=== PATIENT | female | born 1980 | race Caucasian/White ===

== ENCOUNTER → 2019-01-17 | Day surgery (SDC) | payer BC ==
--- OUTSIDE RECORDS SUMMARY | 2019-01-17 09:00 | XMS REPORT ---
:1980 [facility] Address [address] [place] [address] Dr. Perez [address] [place] [id number] Care Team Providers Name Role Phone Unavailable Unavailable Unavailable Problems This patient has no known problems. Allergies, Adverse Reactions, Alerts This patient has no known allergies or adverse reactions. Medications This patient has no known medications.
--- NOTE | 2019-01-17 11:17 | RAD REPORT ---
EXAM DESCRIPTION: US - Breast Core BX w/US Guidance - 01/17/2019 10:28 am CLINICAL HISTORY: ICD N 63.21 COMPARISON: None TECHNIQUE: The risks, benefits and alternatives to the procedure were explained to the patient and i nformed consent obtained. The skin and subcutaneous tissues were anesthetized with Lidocaine. Under sonographic guidance, two 14 gauge vacuum assisted core biopsies were obtained into the mass wi thin the upper-outer quadrant of the left breast. 2 centimeter core specimens obtained. The specimens were given to pathology. Subsequently a localizing clip was placed into the mass. Patient experienced no immediate complication IMPRESSION: Vacuum assisted core biopsies of the mass within the upper outer quadrant of the left br [place]
== END ==
LOC: DS 08:52
PROVIDERS: ATTEND Surgery
DX: N63.21 Unspecified lump in the left breast, upper outer quadrant (principal)
CPT/HCPCS: 19083; 88305

== ENCOUNTER 2022-06-15 21:57 | Emergency (ER) | payer BC ==
--- OUTSIDE RECORDS SUMMARY | 2022-06-15 22:01 | XMS REPORT | Continuity of Care Document ---
:1980 Author Organization [facility] t Address [address] [place] [address] Care Team Providers Name Role Phone Thomas Bell Attending Clinician Unavailable Santos Paul Attending Clinician Unavailable Gustavo Felix MD Attending Clinician GUSTAVO FELIX Attending Clinician Unavailable Physician, No Primary Care Admitting Clinician Unavailable Payers Payer Name Policy Type Policy Number Effective Date Expiration Date S ource Problems Condition Condition Condition Status Onset Resolution Last Treating Co mments Source Name Details Category Date Date Treatment Clinician Date Breast Breast Disease Active Overview: Breonna rivera cancer cancer -01/17/19 - ity of 00:00: left [place] 00 breast Medical biopsy01/17 Branch - MRI left breast01/18 02/04 - double mastectom y MD Chilel Malignant Malignant Disease Active Uni vers neoplasm neoplasm 5-28 ity of of of 00:00: [place] upper-oute upper-oute 00 Me dical r quadrant r quadrant Br anch of left of left breast in breast in female, female, estrogen estrogen receptor receptor positive positive Menorrhagi Menorrhagi Disease Active U nivers a with a with 5-28 ity of regular regular 00:00: [place] cycle cycle 00 Medical Branch Allergies, Adverse Reactions, Alerts Allergy Allergy Status Severity Reaction(s) Onset Inactive Treating Comm ents Source Name Type Date Date Clinician No Known DA Active U [facility] [place] No Known DA Active U [facility] Allergie 4-22 [facility] 00:00: [facility]osp[facility] 00 l [facility] NO KNOWN Drug Active Univers ALLERGIE Class ity of S [facility] [place] [facility] Social History Social Habit Start Date Stop Date Quantity Comments Source Sex Assigned At Universit y of [facility] [place] [facility] Tobacco use and 2019-03-15 2019-03-15 Never used Universit y of exposure 00:00:00 00:00:00 [facility] [place] [facility] Alcohol intake 2019-03-15 2019-03-15 Current drinker Unive rsity of 00:00:00 00:00:00 of alcohol [facility] [place] Alcohol Comment 2016-11-26 2016-11-26 Socially Universit y of 00:00:00 00:00:00 [facility] [place] [facility] History of 1999-11-26 Smoker University of tobacco use 00:00:00 [facility] [place] [facility] Smoking Status Start Date Stop Date Source Former smoker 2019-03-15 00:00:00 2019-03-15 00:00:00 Universi [facility] Medications Ordered Filled Start Stop Current Ordering Indication Dosage Frequency Signature Comments Components Source Medication Medication Date Date Medication? Clinician (SIG) Name Name tramadol Yes Take by Univer s HCl 5-28 mouth. ity of (TRAMADOL 21:51: [place] ORAL) [address] [place] [address] tramadol Yes Take by Univer s HCl 5-28 mouth. ity of (TRAMADOL 21:51: [place] ORAL) [address] [place] [address] gabapentin Yes TAKE ONE Uni vers 300 mg 5-10 (1) ity of capsule 00:00[place] BY MOUTH Medical THREE Branch TIMES A DAY NEEDED . TAKE ONE (1) CAPSULE BY MOUTH THE MORNING OF SURGERY. gabapentin Yes TAKE ONE Uni vers 300 mg 5-10 (1) ity of capsule 00:00: [place] BY M[place]TH Medical THREE Branch TIMES A DAY NEEDED . TAKE ONE (1) CAPSULE BY MOUTH THE MORNING OF SURGERY. Procedures This patient has no known procedures. Encounters Start End Encounter Admission Attending Care Care Encounter Source Date/Time Date/Time Type Type Clinicians Facility Department ID 2021-11-13 Outpatient NAGA Bell [facility] [id number] Common 12:47:34 Thomas [address] [facility] 2019-10-24 Inpatient GEORGES Paul, [facility] DA[facility] [id number] [facility] 08:[facility]:00 [facility] [place] 2019-10-21 Inpatient GEORGES Paul [facility] DAYS [id number] [facility] 08:[facility]:00 [facility] [place] 2020-06-29 2020-06-29 Telephone Gustavo Felix [facility] [id number] 00:00:00 00:00:00 [place] 350.1.13.10 [place] 4.2.7.2.686 Professio [phone] [address] 2020-06-29 2020-06-29 Telephone Gustavo Felix [facility] [id number] [facility] 00:00:00 00:00:00 [place] 350.1.13.10 i ty of [place] 4[place].2.[place] [phone] [place] [address] 2020-02-06 2020-02-06 Outpatient R GUSTAVO FELIX [facility] [id number] Univers 09:00:00 09:00:00 ity of [facility] [place] [facility] 2020-01-25 2020-01-25 Telephone Gustavo Felix [facility] [id number] 00:00:00 00:00:00 [place] 350.1.13.10 [place] 4.2.7.2.686 Professio [phone] [address] 2020-01-25 2020-01-25 Telephone Gustavo Felix [facility] [id number] [facility] 00:00:00 00:00:00 [place] 350.1.13.10 i ty of [place] 4[place].2.686 [place] Profess[place] [phone] [place] [address] Results Test Description Test Time Test Comments Results Result Comments Source BREAST,REDUCTION 2019-10-26 13:19:00 --------RUN DATE: 10/26/19 [facility] PAGE 1 RUN TIME: 1922 Specimen Inquiry RUN USER: INTERFACE --------PATIENT: BENOIT HARMON LOC: [facility] U #: [id number] AGE/SX: 39/F ROOM: RE10/24/19REG DR: Santos Paul MD : 81 BED: DIS: STATUS: JORGE VILA TLOC: -------- SPEC #: [id number] RECD: 10/24/19 STATUS: RAMIRO RETiffany #: [id number] WILLIAM: 10/24/19- SUBM DR: Santos Paul MD ENTERED: 10/25/19 SP TYPE: BENITA JONES DR: ORDERED: GROSS ONLY/2, LEVEL IV CODES: L92909 - BREAST, NOS PROCEDURES: GROSS ONLY (Incomplete) LEVEL IV (Incomplete) TISSUES: BREAST, NOS - RIGHT AND LEFT BREAST EXPANDERS AND RIGHT BREAST CAPSULE CLINICAL HISTORY 39 year old, history of breast cancer (wpd) FINAL DIAGNOSIS Right tissue water team leader, removal: - breast implant (gross identification only) Left tissue water team leader, removal: - breast implant (gross identification only) Right side breast capsule, excision: - fibrous pseudocapsule with focal calcification CPT code(s): 55409 x2, 48131 zo/matt dt: 10/26/19 GROSS DESCRIPTION ANATOMIC SOURCE OF TISSUE (per Requisition): 1. RIGHT tissue water team leader for ID only 2. LEFT tissue water team leader for ID Only 3. RIGHT side breast capsule Each specimen is labeled with the patient's name and medical record number. Specimen #1 is designated "RIGHT tissue water team leader" and consists of an 80 gm, 14.0 x 14.0 x 3.0 cm collapsed, rough surfaced breast explant. There is a 1.0 cm defect. There is an identifiable inscription that reads "[employer] 133FX 12CM-450CC Lot [id number]". No sections are submitted. Gross diagnosis only. Specimen #2 is designated "LEFT tissue water team leader" and consists of an 85 gm, 14.5 x 13.0 x 3.0 cm rough surfaced, collapsed breast explant. There is a 1.5 cm defect. CONTINUED ON NEXT PAGE --------RUN DATE: 10/26/19 [facility] PAGE 2 RUN TIME: 1922 Specimen Inquiry RUN USER: INTERFACE --------SPEC #: [id number] PATIENT: BENOIT HARMON #[id number] (Continued) GROSS DESCRIPTION (Continued) There is an identifiable inscription that reads "[employer] 133FX 12CM-450CC Lot [id number]". No sections are submitted. Gross diagnosis only. Specimen #3 is designated "RIGHT side breast capsule" and consists of a 6.5 x 2.5 x 0.2 cm capsular tissue. The cut surfaces are reno and firm. There are no areas of calcification. Ceramic Maker Demonstrator sections submitted as A1. sugey/melody 10/25/19 MICROSCOPIC DESCRIPTION Specimen #1 is a breast implant for gross identification only. Specimen #2 is a breast implant which is for gross identification only. Specimen #3 consists of a fibrous pseudocapsule with focal calcification. No tumor is identified. hilary dt: 10/26/19 Signed Miriam Aquino 10/26/19 1319 -------- END OF REPORT MOSHE NAYAK 2019-10-24 12:31:00 Test Item Value Reference Range Interpretation Comme nts UR HCG QUAL (test code = HCGQLU) NEGATIVE 1. Very dilute urine specimens, as indicated by a lowspecific gravity, may not contain rep resentative levels ofhCG. 2. False negative results may occur when the levels of hCGare below the sensitivity level of the test. If is st ill suspected, a first morningurine sp ecimen should be collected 48 ho urs later andtested. CBC W/AUTO [id number] 13:22:00 Test Item Value Reference Range Interpretation Comments WHITE BLOOD CELL (test code = WBC) 8.9 K/mm3 6.6-12.1 N RED BLOOD CELL (test code = RBC) 3.89 M/mm3 3.45-5.01 N HEMOGLOBIN (test code = HGB) 11.8 g/dL 10.7-13.9 N HEMATOCRIT (test code = HCT) 35.4 % 32.1-42.1 N MEAN CELL VOLUME (test code = MCV) 91 fL 84.1-94.8 N MEAN CELL HGB (test code = MCH) 30.3 pg 27-35 N MEAN CELL HGB CONCETRATION (test 33.3 gm/dL 32.2-34.1 N code = MCHC) RED CELL DISTRIBUTION WIDTH (test 13.4 % 12.4-16.5 N code = RDW) PLATELET COUNT (test code = PLT) 261 K/mm3 133-385 N IMMATURE PLATELET FRACTION (test 0.0 % 0.0-10.8 N code = IPF) MEAN PLATELET VOLUME (test code = 10.0 fl 9.1-12.7 N MPV) NEUTROPHIL % (test code = NT%) 66.3 % 56.5-79.4 N LYMPHOCYTE % (test code = LY%) 19.7 % 14.3-34.3 N MONOCYTE % (test code = MO%) 7.9 % 5.1-10.4 N EOSINOPHIL % (test code = EO%) 5.1 % 0.1-3.0 H BASOPHIL % (test code = BA%) 0.7 % 0.1-1.0 N NEUTROPHIL # (test code = NT#) 5.9 K/mm3 LYMPHOCYTE # (test code = LY#) 1.7 K/mm3 MONOCYTE # (test code = MO#) 0.7 K/mm3 EOSINOPHIL # (test code = EO#) 0.45 K/mm3 BASOPHIL # (test code = BA#) 0.1 K/mm3 RBC MORPHOLOGY REQUIRED (test code NORMAL NORMAL = RBCM) PLATELET MORPHOLOGY REQUIRED (test NORMAL NORMAL code = PLTMR) UR HCG [id number] 12:45:00 Test Item Value Reference Range Interpretation Comments UR HCG QUAL (test NEGATIVE 1. Very d ilute urine code = HCGQLU) specimens, as indicated by a lowspecific g ravity, may not contain rep resentative levels ofhCG. 2 . False negative result s may occur when the levels of hCGare below the sensi tivity level of the test. If is still suspec twin, a first morningurine sp ecimen should be colle cted 48 hours later and tested. HGB [id number] 13:33:00 Test Item Value Reference Range Interpretation Comments HEMOGLOBIN (test code = HGB) 12.9 g/dL 10.7-13.9 N HEMATOCRIT (test code = HCT) 40.2 % 32.1-42.1 N UR HCG [id number] 13:26:00 Test Item Value Reference Range Interpretation Comments UR HCG QUAL (test NEGATIVE 1. Very di lute urine code = HCGQLU) specimens, as indicated by a lowspecific g ravity, may not contain rep resentative levels ofhCG. 2 . False negative result s may occur when the levels of hCGare below the sensi tivity level of the test. If is still suspec twin, a first morningurine sp ecimen should be colle cted 48 hours later and tested. BREAST,EXCISION OF LESION/[id number] 14:39:00 RUN DATE: 03/01/19 [facility] PAGE 1 RUN TIME: 1104 Specimen Inquiry RUN USER: INTERFACE --PATIENT: BENOIT HARMON [facility] [id number] AGE/SX: 38/F ROOM: [facility] RE02/09/19REG DR: Santos Paul MD : 81 BED: A DIS: 02/10/19 STATUS: DIS Sergio TLOC: SPEC #: [id number] RECD: 02/09/19 STATUS: RAMIRO CESAR #: [id number] WILLIAM: 02/09/19- SUBM DR: Noam Campbell MD ENTERED: 02/09/19-143 SP TYPE: BREAST,EXC OTHR DR: ORDERED: LEVEL SURGIC, FROZEN SECTION, FROZEN ADD, IHC E CADHERIN, CYT OKERATIN AB/2 CODES: P02016 - SKIN, NOS Z54535 - BREAST, NOS KX4589 - LYMPH NODE, NOS PROCEDURES: LEVEL SURGIC (Incomplete) FROZEN SECTION (Incomplete) FROZEN ADD (Incomplete) IHC E CADHERIN (Incomplete) CYTOKERATIN AB (Incomplete) TISSUES: BREAST, NOS - RIGHT AND LEFT BREAST TISSUE X 3 LYMPH NODE,NOS - LYMPH NODES X 2 SKIN, NOS - LEFT BREAST SKIN CLINICAL HISTORY 38 year old, LEFT breast cancer (wpd) FINAL DIAGNOSIS Breast, LEFT mastectomy: - invasive pleomorphic lobular carcinoma, Juan M grade 3 - size invasive carcinoma: 1.6 cm - positive for lymphvascular space invasion - 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, pleomorphic type - margins negative for invasive carcinoma - distance from closest margin: greater than 1.5 cm from reexcised anterior / superior margin - prognostic markers - see above LEFT breast reexcised upper outer anterior margin: - negative for carcinoma LEFT sentinel lymph node, excision: - 1 of 1 lymph nodes negative for metastatic carcinoma (pancytokeratin immunostain neg ative) LEFT breast skin, excision: - negative for carcinoma CONTINUED ON NEXT PAGE -RUN DATE: 03/01/19 [facility] PAGE 2 RUN TIME: 1104 Specimen Inquiry RUN USER: INTERFACE SPEC #: [id number] PATIENT: BENOIT HARMON #[id number] (Continued) FINAL DIAGNOSIS (Continued) RIGHT breast, prophylactic total mastectomy: - negative for carcinoma - fibrocystic changes RIGHT axillary lymph node (blue node), excision: - benign lymph node (1) COMMENT: The Technical components were performed at [facility] [place], [address], [address], [place] [address]. The interpretation is provided by [facility], [address] [place] [id number]. Controls received from [facility] stained appropriately. Permanent sections correlate with frozen section diagnosis. Tissue code 1 CPT code(s): 45645 x2, 64913 x3, 79309 x4, 00972-71, 11122-29 x3 cds/wpd 02/21/19 GROSS DESCRIPTION ANATOMIC SOURCEOF TISSUE (per Requisition): 1. RIGHT blue node 2. RIGHT prophylactic total mastectomy 3. LEFT totalmastectomy, suture through axilla (frozen) 4. LEFT sentinel node A (frozen) 5. LEFT breast new upperouter anterior margin 6. New LEFT breast skin Each specimen is labeled with the patient's name and medical record number. Specimen #1 is designated "RIGHT blue node" and consists of a 2 x 1.7 x 1.0 cm yellow fatty tissue. It contains a lymph node measuring 0.7 cm. The lymph node contains blue dye. Thelymph node is sectioned and submitted in toto in A1. Specimen #2 is designated "RIGHT prophylactic total mastectomy" and consists of a 1727 gm simple mastectomy specimen measuring 26 x 25 x 12 cm. The anterior surface contains inverted, T-shaped, unremarkable light reno skin measuring 24 x 20 cm and contains a superiorly located unretracted nipple and areolar complex measuring 1.2 and 4.0 cm. The nipple and areolar is sectioned and submitted in B1. Serial sectioning of the specimen reveals off- white and yellow fibrofatty breast tissue with a fibrous tissue to adipose tissue ratio of approximately 2:3. The parenchyma contains blue-domed cysts measuring up to 0.4 cm. No other lesion is noted. Ceramic Maker Demonstrator sections are submitted in B2 - central breast with the cysts, B3 - outer upper quadrant, B4 - outer lower quadrant, B5 - inner upper quadrant, B6 - inner lower quadrant. Specimen #3 received without fixative and designated "LEFT total mastectomy, suture CONTINUED ON NEXT PAGE R UN DATE: 03/01/19 [facility] PAGE 3 RUN TIME: 1104 Specimen Inquiry RUN USER: INTERFACE SPEC #: [id number] PATIENT: BENOIT HARMON #[id number] (Continued) GROSS DESCRIPTION (Continued) through axilla". The specimen consists ofa 26 x 26 x 11 cm, 1517 gm, modified radical mastectomy specimen. The anterior surface contains inverted, T-shaped, unremarkable light reno skin measuring 22 x 14 cm and contains a superiorly located unretracted nipple and areolar complex measuring 1.1 and 4.0 cm. The nipple and areola is sectioned andsubmitted in toto in C1. Ink code: Blue - anterior superior superficial surface Red - anterior inferior superficial surface Black - entire deep surface Serial sectioning of the specimen reveals off-white and yellow fibrofatty breast tissue with a fibrous tissue to adipose tissue ratio of approximately2:3. It contains a 2.3 x 1.8 x 1.5 cm danielle-reno, firm lesion located in the outer upper quadrant, 7 cm from the lateral edge, 8 cm from the superior edge, 12 cm from nipple, 0.2 cm from the closest anterior superior superficial margin. One section of the lesion with the closest anterior superficial margin is submitted in FSC1. The tissue superior to the lesion appears hemorrhagic and measures up to 1.7 cm. The entire remaining lesion with surrounding tissue and hemorrhagic tissue are submitted from medial to lateral in C2 through C5 - the lesion with the surrounding tissue and closest anterior margin, C6 - the closest deep inked margin, C7 through C10 - hemorrhagic tissue immediately superior to the lesion. Examination of the remaining tissue reveals no other lesions. Additional sections are submitted as follows: C11 - inner upper quadrant, C12 - inner lower quadrant, C13 - outer upper quadrant superior to the lesion, C14 - outer inferior quadrant. Examination of the stitch area of the specimen reveals no lymph nodes. Ceramic Maker Demonstrator sections from this area are submitted in C15 and C16. Specimen#4 received without fixative and designated "LEFT sentinel node A". The specimen consists of a 3 x 3x 1 cm yellow fatty tissue. It contains a 1.2 x 0.7 x 0.5 cm reno-yellow lymph node. The lymph node is sectioned and submitted in toto in FSD1. hz/wpd 02/09/19 @ 4421 Specimen #5 is designated "LEFT breast new upper outer anterior margin" and consists of a 9 gm, 6.5 x 3.5 x 1.5 cm portion breast tissue. There is an identifiable suture, which is designated by the surgeon as "stitch through old margin". The breast parenchyma is fibrofatty and firm. There is no definite residual tumor. The specimen is inked as follows: Surface with stitch - blue, opposite surface - black. The specimen is submitted in its entirety in sequential order as E1 through E8. Specimen #6 is designated "new LEFT breast skin" and consists of a 9 gm, 4.0 x 3.0 x 1.0 cm portion of breast tissue with an overlying 3.8 x 1.4 cm ellipse of skin. The epidermis is reno and slightly granular. The subcutaneous tissue is fibrofatty and CONTINUED ON NEXT PAGE RUN DATE: 03/01/19 [facility] PAGE 4 RUN TIME: 1104 Specimen Inquiry RUNUSER: INTERFACE SPEC #: [id number] PATIENT: BENOIT HARMON #[id number] (Continued) GROSS DESCRIPTION (Continued) unremarkable. There is no definite residual tumor. Also received in the same container is a 4.0 x 1.5 cm reno, slightly granular, unremarkable ellipse of skin. The tissues are inked as follows: Breast tissue - blue, skin - black. Ceramic Maker Demonstrator sections are submitted labeled F1 through F3. sugey/matt 02/10/19 @8970 MICROSCOPIC DESCRIPTION The LEFT breast contains a moderately to poorly-differentiated invasivepleomorphic lobular carcinoma (E- Cadherin negative, p120 positive cytoplasmic staining consistent with lobular carcinoma). The tumor has the following attributes: Specimen Laterality: - LEFT Procedure:- Total mastectomy Tumor Site: - Upper outer quadrant Tumor Size: - 1.6 cm Histologic Type: - Invasive carcinoma with ductal and lobular features Histologic Grade: - Juan M grade 3, score 8 (tubules 3, nuclei 3, mitotic rate 2) Ductal carcinoma in-situ (DCIS): - Not identified Lobular carcinoma in- situ (LCIS); - Consistent with pleomorphic lobular carcinoma in-situ Margins: - Negative for invasive carcinoma Distance from closest margin: - Greater than 1.5 cm from reexcised anterior / superior margin Lymph nodes: - Number of sentinel lymph nodes: 1 - Number of total lymph nodes: 1 - Number of lymph nodes with macrometastases: 0 - Number of lymph nodes with micrometastases: pancytokeratin immunostain CONTINUED ON NEXT PAGE RUN DATE: 03/01/19 [facility] PAGE 5 RUN TIME: 1104 Specimen Inquiry RUN USER: INTERFACE SPEC #: [id number] PATIENT: BENOIT HARMON #[id number] (Continued) MICROSCOPIC DESCRIPTION (Continued) negative on block FSD1 Lymphvascular space invasion: - Positive (confirmed on D240 immunostain on block C4) Pathologic Stage Classification: - Primary tumor: pT1c - Lymph nodes: pN0 Ancillary studies: - Prognostic markers: See below The following results are received from [facility], [place], [place] on February 14, 2019. BODY SITE: LEFT breast tissue SENTINEL NODES [id number] PROGNOSTIC / PREDICTIVE MARKERS Histology Image Analysis, Global IHC Quantitative Breast Panel INTERPRETATION: Refer to separate report for results of HER2 FISH reflex testing. ER: POSITIVE Tumor Stained: 99% Intensity: 3+ Internal Control: Present, positive Tico Score: 8 PgR: POSITIVE Tumor Stained: 99% Intensity: 3+ Internal Control: Present, positive Tico Score: 8 HER2 Breast: NEGATIVE Score: 1+ Percentage of cells with uniform Intensive Complete Membrane Stainin% KI67: BORDERLINE Tumor Stained: 19% Intensity: 3+ COMMENT: Specimen handlingmet the requirements specified in the latest version of the ASCO/CAP guidelines. CONTINUED ON NEXT PAGE RUN DATE: 03/01/19 [facility] PAGE 6 RUN TIME: 1104 Specimen Inquiry RUN USER: INTERFACE - SPEC #: [id number] PATIENT: BENOIT HARMON #[id number] (Continued) MICROSCOPIC DESCRIPTION (Continued) Following is the FISH Analysis received from [facility], [place], [place] on February 18, 2019. HER-2 BREAST FISH ANALYSIS Specimen site: LEFT BREAST, SENTINELNODES Result POSITIVE INTERPRETATION: Average HER2 signals/nucleus: 5.0 Average DIEGO 17 signals/nucleus: 2.4 HER2/DIEGO 17 signal ratio: 2.1 Number of Observers: 1 Results show HER2 amplification and a HER2/CEN17 ratio of >/=2.0 with average HER2 copy number /=4.0 signals per cell. This is a POSITIVEresult based on the 2018 ASCO/CAP guidelines. Along with fluorescence in situ hybridization (FISH), an H E stained slide was reviewed by a pathologist to identify the target area containing invasive tumor. FISH analysis of 50 interphase nuclei was performed within the marked target area using a dual-probe FISH assay. When FISH results are indeterminate and IHC is equivocal (2+), the FISH slide is recounted including the area(s) of invasive tumor with 2+ staining as identified by a pathologist. At least 20 additional cells are counted by an additional observer, blinded to previous BEBA results. Controls performed appropriately. cds/kr dt: 02/21/19 / cds/wpd 02/21/19 Signed Rusty Cardenas 02/21/19 1439 END OF REPORT BREAST,EXCISION OF LESION/MASS 2019-02-21 14:39:00 RUN DATE: 03/15/19 [facility] PAGE 1 RUN TIME: 1439 Specimen Inquiry RUN USER: INTERFACE --PATIENT: BENOIT HARMON LOC: [facility] U #: [id number] AGE/SX: 38/F ROOM: [facility] RE02/09/19REG DR: Santos Paul MD : 81 BED: A DIS: 02/10/19 STATUS: DIS Sergio TLOC: SPEC #: [id number] RECD: 02/09/19 STATUS: RAMIRO LION #: [id number] WILLIAM: 02/09/19- SUBM DR: Noam Campbell MD ENTERED: 02/09/19 SP TYPE: BREAST,EXC OTHR DR: ORDERED: LEVEL SURGIC, FROZEN SECTION, FROZEN ADD, IHC E CADHERIN, CYTO KERATIN AB/2 ADDENDUM FINDINGS Addendum #1 Entered: 03/15/19 Following is the FISH Analysis received from [facility], [place], [place] on March 12, 2018. HER-2 BREAST FISH ANALYSIS Specimen site: LEFT BREAST ([id number]) Result POSITIVE INTERPRETATION: Average HER2 signals/nucleus: 5.0 Average DIEGO 17 signals/nucleus: 2.4 HER2/DIEGO 17 signal ratio: 2.1 Number of Observers: 1 Results show HER2 amplification and a HER2/CEN17 ratio of >/+2.0 with average HER2 copy number >/+4.0 signals cell. This is a POSITIVE result based on the 2018 ASCO/CAP guidelines. Along with fluorescence in situ hybridization (FISH), an H E stained slide was reviewed by a pathologist to identify the target area containing invasive tumor. FISH analysis of 50 interphase nuclei was performed within the marked target area using a dual-probe FISH assay. When FISH results are indeterminate and IHC is equioval (2+), the FISH slide is recounted including the areas(s) of invasive tumor with 2+ staining as identifiedby a pathologist. At least 20 additional cells are counted by an additional observer, blinded to previous BEBA results. Controls performed appropriately. I acknowledge the above findings. Rashawn Cardenas M.D., Pathologist/ksr CONTINUED ON NEXT PAGE -- RUN DATE: 03/15/19 [facility] PAGE 2 RUN TIME: 1439 Specimen Inquiry RUN USER: INTERFACE -SPEC #: [id number] PATIENT: BENOIT HARMON #[id number] (Continued) ADDENDUM FINDINGS (Continued) March 15, 2019 @ 0702 Addendum Signed Theresa,Rusty Enrique 03/15/19 1439 (prelim) Theresa,Rusty Enrique 03/15/19 1439 CODES: [id number] - SKIN, NOS [id number] - BREAST, NOS [id number] - LYMPH NODE, NOS PROCEDURES: LEVEL SURGIC (Incomplete) FROZEN SECTION (Incomplete) FROZEN ADD (Incomplete)IHC E CADHERIN (Incomplete) CYTOKERATIN AB (Incomplete) TISSUES: BREAST, NOS - RIGHT AND LEFT BREASTTISSUE X 3 LYMPH NODE, NOS - LYMPH NODES X 2 SKIN, NOS - LEFT BREAST SKIN CLINICAL HISTORY 38 year old, LEFT breast cancer (wpd) FINAL DIAGNOSIS Breast, LEFT mastectomy: - invasive pleomorphic lobular carcinoma, [place] grade 3 - size invasive carcinoma: 1.6 cm - positive for lymphvascular space invasion - 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, pleomorphic type - margins negative for invasive carcinoma - distance from closest margin: greater than 1.5 cm from reexcised anterior / superior margin - prognostic markers - see above LEFT breast reexcised upper outer anterior margin: - negative for carcinoma LEFT sentinel lymph node, excision: - 1 of 1 lymph nodes negative for metastatic carcinoma (pancytokeratin immunostain negative) LEFT breast skin, excision: - negative for carcinoma CONTINUED ON NEXT PAGE RUN DATE: 03/15/19 [facility] PAGE 3 RUN TIME: 1439 Specimen Inquiry RUN USER: INTERFACE SPEC #: [id number] PATIENT: BENOIT HARMON #[id number] (Continued) FINAL DIAGNOSIS (Continued) RIGHT breast, prophylactic total mastectomy: - negative for carcinoma - fibrocystic changes RIGHT axillary lymph node (blue node), excision: - benign lymph node (1) COMMENT: The Technical components were performed at [facility], [address] [place] [address], [address], [place] [address]. The interpretation is provided by [facility], [address] [place] [address], [place] [address]. Controls received from [employer] stained appropriately. Permanent sections correlate with frozen section diagnosis. Tissu e code 1 CPT code(s): 07780 x2, 92423 x3, 82067 x4, 01795-83, 67223-90 x3 cds/wpd 02/21/19 GROSS DESCRIPTION ANATOMIC SOURCE OF TISSUE (per Requisition): 1. RIGHT blue node 2. RIGHT prophylactic total mastectomy 3. LEFT total mastectomy, suture through axilla (frozen) 4. LEFT sentinel node A (frozen) 5. LEFT breast new upper outer anterior margin 6. New LEFT breast skin Each specimen is labeled with the patient's name and medical record number. Specimen #1 is designated "RIGHT blue node" and consists of a 2 x 1.7 x 1.0 cm yellow fatty tissue. It contains a lymph node measuring 0.7 cm. The lymph node contains blue dye. The lymph node is sectioned and submitted in toto in A1. Specimen #2 is designated "RIGHT prophylactic total mastectomy" and consists of a 1727 gm simple mastectomy specimen measuring 26 x 25 x 12 cm. The anterior surface contains inverted, T-shaped, unremarkable light reno skin measuring 24 x 20 cm and contains a superiorly located unretracted nipple and areolar complex measuring 1.2 and 4.0 cm. The nipple and areolar is sectioned and submitted in B1. Serial sectioning of the specimen reveals off-white and yellow fibrofatty breast tissue with a fibrous tissue to adipose tissue ratio of approximately 2:3. The parenchyma contains blue-domed cysts measuring up to 0.4 cm. No other l esion is noted. [employer] sections are submitted in B2 - central breast with the cysts, B3 - outer upper quadrant, B4 - outer lower quadrant, B5 - inner upper quadrant, B6 - inner lower quadrant. CONTINUED ON NEXT PAGE RUN DATE: 03/15/19 [facility] PAGE 4 RUN TIME: 1439 Specimen Inquiry RUN USER: INTERFACE SPEC #: [id number] PATIENT: BENOIT HARMON #[id number] (Continued) GROSS DESCRIPTION (Continued) Specimen #3 received without fixative and designated "LEFT total mastectomy, suture through axilla". The specimen consists of a 26 x 26 x 11 cm, 1517 gm, modified radical mastectomy specimen. The anterior surface contains inverted, T-shaped, unremarkable light reno skin measuring 22 x 14 cm and containsa superiorly located unretracted nipple and areolar complex measuring 1.1 and 4.0 cm. The nipple andareola is sectioned and submitted in toto in C1. Ink code: Blue - anterior superior superficial surface Red - anterior inferior superficial surface Black - entire deep surface Serial sectioning of the specimen reveals off-white and yellow fibrofatty breast tissue with a fibrous tissue to adipose tissue ratio of approximately 2:3. It contains a 2.3 x 1.8 x 1.5 cm danielle-reno, firm lesion located in the outer upper quadrant, 7 cm from the lateral edge, 8 cm from the superior edge, 12 cm from nipple, 0.2 cm from the closest anterior superior superficial margin. One section of the lesion with the closest anterior superficial margin is submitted in FSC1. The tissue superior to the lesion appears hemorrhagic and measures up to 1.7 cm. The entire remaining lesion with surrounding tissue and hemorrhagic tissue are submitted from medial to lateral in C2 through C5 - the lesion with the surrounding tissue and closest anterior margin, C6 - the closest deep inked margin, C7 through C10 - hemorrhagic tissue immediately superior to the lesion. Examination of the remaining tissue reveals no other lesions. Additional sections are submitted as follows: C11 - inner upper quadrant, C12 - inner lower quadrant, C13 - outer upper quadrant superior to the lesion, C14 - outer inferior quadrant. Examination of the stitch area of the specimen reveals no lymph nodes. Cer[employer] sections from this area are submitted in C15 and C16. Specimen #4 received without fixative and designated "LEFT sentinel node A". The specimen consists of a 3 x 3 x 1 cm yellow fatty tissue. It contains a 1.2 x 0.7 x 0.5 cm reno-yellow lymph node. The lymph node is sectioned and submitted in toto in FSD1. hz/wpd 02/09/19 @ 2774 Specimen #5is designated "LEFT breast new upper outer anterior margin" and consists of a 9 gm, 6.5 x 3.5 x 1.5 cm portion breast tissue. There is an identifiable suture, which is designated by the surgeon as "stitch through old margin". The breast parenchyma is fibrofatty and firm. There is no definite residual tumor. The specimen is inked as follows: Surface with stitch - blue, opposite surface - black. The specimen is submitted in its entirety in sequential order as E1 through E8. Specimen #6 is designated "new LEFT breast skin" and consists of a 9 gm, 4.0 x 3.0 x 1.0 cm portion of breast tissue with an overlying 3.8 x 1.4 cm ellipse of skin. The CONTINUED ON NEXT PAGE RUN DATE: 03/15/19 [facility] PAGE 5 RUN TIME: 1439 Specimen Inquiry RUN USER: INTERFACE SPEC #: [id number] PATIENT: BENOIT HARMON #[id number] (Continued) GROSS DESCRIPTION (Continued) epidermis is reno and slightly granular. The subcutaneous tissue is fibrofatty and unremarkable. There is no definite residual tumor. Also received in the same container is a 4.0 x 1.5 cm reno, slightly granular, unremarkable ellipse of skin. The tissues are inked as follows: Breast tissue - blue, skin - black. Cer[employer] sections are submitted labeled F1 through F3. 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 The tumor has the following attributes: Specimen Laterality: - LEFT Procedure: - Total mastectomy Tumor Site: - Upper outer quadrant Tumor Size: - 1.6 cm Histologic Type: - Invasive carcinoma with ductal and lobular features Histologic Grade: - [place] grade 3, score 8 (tubules 3, nuclei 3, mitotic rate 2) Ductal carcinoma in-situ (DCIS): - Not identified Lobular carcinoma in-situ (LCIS); - Consistent with pleomorphic lobular carcinoma in-situ Margins: - Negative for invasive carcinoma Distance from closest margin: - Greater than 1.5 cm from reexcised anterior / superior margin Lymph nodes: - Number of sentinel lymph nodes: 1 - Number of total lymphnodes: 1 - Number of lymph nodes with macrometastases: 0 CONTINUED ON NEXT PAGE SAMRA Wagner DATE: 03/15/19 [facility] PAGE 6 RUN TIME: 1439 Specimen Inquiry RUN USER: INTERFACE SPEC #: [id number] PATIENT: BENOIT HARMON #[id number] (Continued) MICROSCOPIC DESCRIPTION (Continued) - Number of lymph nodes with micrometastases: pancytokeratin immunostain negative on block FSD1 Lymphvascular space invasion: - Positive(confirmed on D240 immunostain on block C4) Pathologic Stage Classification: - Primary tumor: pT1c - Lymph nodes: pN0 Ancillary studies: - Prognostic markers: See below The following results are received from [facility], [place], [place] on February 14, 2019. BODY SITE: LEFT breast tissue SENTINEL NODES [id number] PROGNOSTIC / PREDICTIVE MARKERS Histology Image Analysis, Global IHC Quantitative Breast Panel INTERPRETATION: Refer to separatereport for results of HER2 FISH reflex testing. ER: POSITIVE Tumor Stained: 99% Intensity: 3+ Internal Control: Present, positive Tico Score: 8 PgR: POSITIVE Tumor Stained: 99% Intensity: 3+ InternalControl: Present, positive Tico Score: 8 HER2 Breast: NEGATIVE Score: 1+ Percentage of cells with uniform Intensive Complete Membrane Stainin% KI67: BORDERLINE Tumor Stained: 19% Intensity: 3+ COMMENT: Specimen handling met the requirements specified in the latest version of the ASCO/CAP guidelines. CONTINUED ON NEXT PAGE RUN DATE: 03/15/19 [facility] PAGE 7 RUN TIME: 1439 Specimen Inquiry RUN USER: INTERFACE SPEC #: [id number] PATIENT: BENOIT HARMON #[id number] (Continued) MICROSCOPIC DESCRIPTION (Continued) Following is the FISH Analysis received from [facility], [place], [place] on February 18, 2019. HER-2 BREAST FISH ANALYSIS Specimen site: LEFT BREAST, SENTINEL NODES Result POSITIVE INTERPRETATION: Average HER2 signals/nucleus: 5.0 Average DIEGO 17 signals/nucleus: 2.4 HER2/DIEGO 17 signal ratio: 2.1 Number of Observers: 1 Results show HER2 amplification and a HER2/CEN17 ratio of >/=2.0 with average HER2 copy number /=4.0 signals per cell. This is a POSITIVE result based on the 2018 ASCO/CAP guidelines. Along with fluorescence in situ hybridization (FISH), an H E stained slide was reviewed by a pathologist to identify the target area containing invasive tumor. FISH analysis of 50 interphase nuclei was performed within the marked target area using a dual-probe FISH assay. When FISH results are indeterminate and IHC is equivocal (2+), the FISH slide is recounted including the area(s) of invasive tumor with 2+ staining as identifiedby a pathologist. At least 20 additional cells are counted by an additional observer, blinded to previous BEBA results. Controls performed appropriately. cds/kr dt: 02/21/19 / cds/wpd 02/21/19 Signed Rusty Ibarra 02/21/19 1439 END OF REPORT - NM LYMPHIMAG 2019-02-09 17:23:00 Patient Name: BENOIT HARMON Unit No: [id number] EXAMS: CPT CODE: [id number] NM LYMPHIMAG [id number] PROCEDURE: NUCLEAR MEDICINE INJECTION FOR SENTINEL NODE WITH SCINTIGRAPHY INDICATION: Left breast cancer. TECHNIQUE: Injection of 525 uCi technetium 99m filtered sulfur colloid was performed in the 3 o'clock periareolar left breast under sterile conditions and local anesthesia for sentinel lymph node identification. Injection was performed at 0810 hours. Lymphoscintigraphy was performed in AP and oblique projections with and without transmission images. FINDINGS: Focal intense uptake corresponding to injection site left breast. Focal uptake left axilla identified as the sentinel node and labeled by the licensed nuclear operator. SL: [id number] at 1723 Reported and signed by: Acosta Villela MD CC: Noam Campbell MD Technologist: Kyree Castellon Trnscrbd D/ (172) ArsenioKWL Orig Print D/T: S: 02/09/2019 (172) [facility] NAME: BENOIT HARMON Radiology Department PHYS: MCBJM - Noam Campbell MD [address] : 1980 AGE: 38 SEX: F [place], [place] [address] LOC: JESIKA PHONE #: [phone] EXAM DATE: 02/09/2019 STATUS: REG [facility] [place] FAX #: [phone] RAD NO: Page 1 Signed ReportUR HCG [id number] 15:51:00 Test Item Value Reference Range Interpretation Comments UR HCG QUAL (test NEGATIVE 1. Very di lute urine code = HCGQLU) specimens, as indicated by a lowspecific g ravity, may not contain rep resentative levels ofhCG. 2 . False negative result s may occur when the levels of hCGare below the sensi tivity level of the test. If is still suspec twin, a first morningurine sp ecimen should be colle cted 48 hours later and tested. CBC W/AUTO [id number] 15:49:00 Test Item Value Reference Range Interpretation Comments WHITE BLOOD CELL (test code = WBC) 10.5 K/mm3 6.6-12.1 N RED BLOOD CELL (test code = RBC) 4.70 M/mm3 3.45-5.01 N HEMOGLOBIN (test code = HGB) 13.7 g/dL 10.7-13.9 N HEMATOCRIT (test code = HCT) 42.2 % 32.1-42.1 H MEAN CELL VOLUME (test code = MCV) 90 fL 84.1-94.8 N MEAN CELL HGB (test code = MCH) 29.1 pg 27-35 N MEAN CELL HGB CONCETRATION (test 32.5 gm/dL 32.2-34.1 N code = MCHC) RED CELL DISTRIBUTION WIDTH (test 12.8 % 12.4-16.5 N code = RDW) PLATELET COUNT (test code = PLT) 272 K/mm3 133-385 N IMMATURE PLATELET FRACTION (test 0.0 % 0.0-10.8 N code = IPF) MEAN PLATELET VOLUME (test code = 10.2 fl 9.1-12.7 N MPV) NEUTROPHIL % (test code = NT%) 65.8 % 56.5-79.4 N LYMPHOCYTE % (test code = LY%) 26.7 % 14.3-34.3 N MONOCYTE % (test code = MO%) 4.7 % 5.1-10.4 L EOSINOPHIL % (test code = EO%) 2.1 % 0.1-3.0 N BASOPHIL % (test code = BA%) 0.5 % 0.1-1.0 N NEUTROPHIL # (test code = NT#) 6.9 K/mm3 LYMPHOCYTE # (test code = LY#) 2.8 K/mm3 MONOCYTE # (test code = MO#) 0.5 K/mm3 EOSINOPHIL # (test code = EO#) 0.22 K/mm3 BASOPHIL # (test code = BA#) 0.1 K/mm3 RBC MORPHOLOGY REQUIRED (test code NORMAL NORMAL = RBCM) PLATELET MORPHOLOGY REQUIRED (test NORMAL NORMAL code = PLTMR)
--- NOTE | 2022-06-15 22:18 | ER ---
Nurse's Notes [facility] Name: Ivis Reyes Age: 41 yrs Sex: Female : 1980 Arrival Date: 06/15/2022 Time: 22:01 Bed Waiting Private MD: Diagnosis: Person with feared health complaint in whom no diagnosis is made Presentation: 06/15 22:15 Chief complaint: Patient states: i feel something in my ear. i think its the end of a q lg3 tip. Coronavirus screen: Client denies travel out of the [place] in the last 14 days. At this time, the client does not indicate any symptoms associated with coronavirus-19. Ebola Screen: No symptoms or risks identified at this time. Initial Sepsis Screen: Does the patient meet any 2 criteria? No. Patient's initial sepsis screen is negative. Does the patient have a suspected source of infection? No. Patient's initial sepsis screen is negative. Risk Assessment: Do you want to hurt yourself or someone else? Patient reports no desire to harm self or others. Onset of symptoms was June 15, 2022. 22:15 Method Of Arrival: Ambulatory lg3 22:15 Acuity: GERTRUDE 5 lg3 Triage Assessment: 22:17 General: Appears in no apparent distress. uncomfortable, Behavior is calm, cooperative. lg3 Pain: Complains of pain in right ear. EENT: Tympanic membrane clear on right ear. Neuro: No deficits noted. Level of Consciousness is awake, alert, obeys commands, Oriented to person, place, time, situation. Cardiovascular: No deficits noted. Denies chest pain, shortness of breath, Capillary refill < 3 seconds Clubbing of nail beds is absent JVD is absent Patient's skin is warm and dry. Respiratory: No deficits noted. Airway is patent Trachea midline Respiratory effort is even, unlabored, Respiratory pattern is regular, symmetrical. GI: No deficits noted. No signs and/or symptoms were reported involving the gastrointestinal system. Abdomen is flat, non-distended. : No deficits noted. No signs and/or symptoms were reported regarding the genitourinary system. Derm: No deficits noted. No signs and/or symptoms reported regarding the dermatologic system. Skin is intact, is healthy with good turgor, Skin is dry, Skin temperature is warm. Musculoskeletal: No deficits noted. No signs and/or symptoms reported regarding the musculoskeletal system. Circulation, motion, and sensation intact. Range of motion: intact in all extremities. Historical: - Allergies: 22:17 No Known Allergies; lg3 - Home Meds: 22:17 letrozole oral [Active]; Effexor Oral [Active]; lg3 - PMHx: 22:17 breast cancer; lg3 - PSHx: 22:17 double mastectomy; knee; lg3 - Immunization history:: Adult Immunizations up to date. - Social history:: Smoking status: Patient denies any tobacco usage or history of. Patient/guardian denies using alcohol, street drugs. Screenin:20 Abuse screen: Denies threats or abuse. Denies injuries from another. Nutritional lg3 screening: No deficits noted. Tuberculosis screening: No symptoms or risk factors identified. Fall Risk None identified. Vital Signs: 22:15 BP 131 / 86; Pulse 84; Resp 18 S; Temp 98.2(O); Pulse Ox 100% on R/A; Weight 76.2 kg lg3 (R); Height 5 ft. 5 in. (165.10 cm) (R); 22:15 Body Mass Index 27.96 (76.20 kg, 165.10 cm) lg3 ED Course: 22:01 Patient arrived in ED. ja2 22:10 Amy Melgar FNP-C is [facility]. kb 22:10 Garrison Bang MD is Attending Physician. kb 22:17 Triage completed. lg3 22:17 Arm band placed on right wrist. lg3 22:20 Patient has correct armband on for positive identification. lg3 22:20 No provider procedures requiring assistance completed. Patient did not have IV access lg3 during this emergency room visit. Administered Medications: No medications were administered Medication: 22:21 VIS not applicable for this client. lg3 Outcome: 22:17 Discharge ordered by . kb 22:20 Discharged to home ambulatory. lg3 22:20 Condition: stable 22:20 Discharge instructions given to patient, Instructed on discharge instructions, Demonstrated understanding of instructions. 22:23 Patient left the ED. bb Signatures: Amy Melgar FNP-C FNP-Ckb Ballard, Brenda, RN RN bb Fabby Anglin RN RN lg3 Radames, Ijeoma ja2
--- NOTE | 2022-06-15 22:18 | EDPHYS ---
Physician Documentation [facility] Name: Ivis Reyes Age: 41 yrs Sex: Female : 1980 Arrival Date: 06/15/2022 Time: 22:01 Bed Waiting Private MD: ED Physician Garrison Bang HPI: 06/15 23:27 This 41 yrs old Female presents to ER via Ambulatory with complaints of Foreign Body In kb Ear. 23:27 The patient presents with a foreign body sensation. The complaints affect the right kb ear. Onset: The symptoms/episode began/occurred just prior to arrival. Modifying factors: The symptoms are alleviated by nothing, the symptoms are aggravated by nothing. Associated signs and symptoms: The patient has no apparent associated signs or symptoms. Severity of symptoms: At their worst the symptoms were mild in the emergency department the symptoms are unchanged. The patient has not experienced similar symptoms in the past. The patient has not recently seen a physician. Patient states she was using a Q-tip in right ear and the cotton came off the end. Patient believes cotton is still in the ear canal.. Historical: - Allergies: 22:17 No Known Allergies; lg3 - Home Meds: 22:17 letrozole oral [Active]; Effexor Oral [Active]; lg3 - PMHx: 22:17 breast cancer; lg3 - PSHx: 22:17 double mastectomy; knee; lg3 - Immunization history:: Adult Immunizations up to date. - Social history:: Smoking status: Patient denies any tobacco usage or history of. Patient/guardian denies using alcohol, street drugs. ROS: 23:26 Constitutional: Negative for fever, chills, and weight loss. kb 23:26 ENT: Positive for foreign body sensation. 23:26 All other systems are negative. Exam: 23:26 Constitutional: This is a well developed, well nourished patient who is awake, alert, kb and in no acute distress. Head/Face: Normocephalic, atraumatic. ENT: Moist Mucous membranes Cardiovascular: Regular rate and rhythm with a normal S1 and S2. No gallops, murmurs, or rubs. No pulse deficits. Respiratory: Respirations even and unlabored. No increased work of breathing. Talking in full sentences Skin: Warm, dry with normal turgor. Normal color. MS/ Extremity: Pulses equal, no cyanosis. Neurovascular intact. Full, normal range of motion. Neuro: Awake and alert, GCS 15, oriented to person, place, time, and situation. Moves all extremities. Normal gait. Psych: Awake, alert, with orientation to person, place and time. Behavior, mood, and affect are within normal limits. 23:26 ENT: External ear(s): are unremarkable, Ear canal(s): are normal, TM's: are normal. Vital Signs: 22:15 BP 131 / 86; Pulse 84; Resp 18 S; Temp 98.2(O); Pulse Ox 100% on R/A; Weight 76.2 kg lg3 (R); Height 5 ft. 5 in. (165.10 cm) (R); 22:15 Body Mass Index 27.96 (76.20 kg, 165.10 cm) lg3 MDM: 22:17 Patient medically screened. kb 23:26 Data reviewed: vital signs, nurses notes. Data interpreted: Pulse oximetry: on room air kb is 100 %. Interpretation: normal. Counseling: I had a detailed discussion with the patient and/or guardian regarding: the historical points, exam findings, and any diagnostic results supporting the discharge/admit diagnosis, the need for outpatient follow up, a family practitioner, to return to the emergency department if symptoms worsen or persist or if there are any questions or concerns that arise at home. 23:27 ED course: No foreign body seen on exam. kb Administered Medications: No medications were administered Disposition: 06/16 01:54 Co-signature as Attending Physician, Garrison Bang MD I agree with the assessment and kdr plan of care. Disposition Summary: 06/15/22 22:17 Discharge Ordered Location: Home kb Condition: Stable kb Diagnosis - Person with feared health complaint in whom no diagnosis is made kb Followup: kb - With: Emergency Department - When: As needed - Reason: Worsening of condition Followup: kb - With: Private Physician - When: 2 - 3 days - Reason: Recheck today's complaints, Continuance of care, Re-evaluation by your physician Discharge Instructions: - Discharge Summary Sheet kb - Ear Foreign Body, [id number] kb Forms: - Medication Reconciliation Form kb - Thank You Letter kb - Antibiotic Education kb - Prescription Opioid Use kb Signatures: Amy Melgar FNP-C FNP-Umbertob Garrison Bang MD MD kdr Fabby Anglin, RN RN lg3
[2022-06-16 00:32] VITALS: BP 131/86; TEMP 98.2; O2SAT 100
== END 2022-06-15 22:23 | disposition home or self-care (01) ==
LOC: ER 21:57
DX: Z71.1 Person with feared health complaint in whom no diagnosis is made (principal)
CPT/HCPCS: 99281